=== PATIENT | female | born 1960 | race Caucasian/White ===

== ENCOUNTER → 2016-04-29 | Outpatient (CLI) | payer OTHER ==
[~2016-04-29] MED LIST: NORCO 7.5-3251 EACH PO
== END ==
LOC: KOH-I 14:12
DX: R42 Dizziness and giddiness (principal); J32.0 Chronic maxillary sinusitis
CPT/HCPCS: 70450

== ENCOUNTER → 2016-05-16 | Outpatient (CLI) | payer OTHER | LOC: KOH-I 12:34 | DX: J32.9 Chronic sinusitis, unspecified (principal); J33.9 Nasal polyp, unspecified; R51 Headache; J34.2 Deviated nasal septum; J34.3 Hypertrophy of nasal turbinates; J34.89 Other specified disorders of nose and nasal sinuses | CPT/HCPCS: 70486 ==